=== PATIENT | male | born 1935 | race Caucasian/White ===

== ENCOUNTER 2016-12-14 18:43 | Inpatient (IN) | payer MEDICARE ==
[~2016-12-14] VITALS: Ht 190.5 cm; Wt 70.9 kg
[~2016-12-14 18:43] MED LIST: ACCUPRIL10 MG PO; ANTIVERT25 MG PO; ASPIRIN CHILDRE81 MG PO; ASPIRIN81 M1 PO; BACTROBAN OINT22 GM T; CEFTIN250 MG PO; CIPRO500 MG PO; DOK COLACE100 MG PO; HYDROCODONE BIT1 T11 PO; K-DUR20 MEQ PO; K-TAB20 MEQ PO; LAC-HYDRIN12% T; LASIX40 MG PO; Lac-Hydrin 12%340 GM T; MIRALAX POWDER17 G1 PO; NKHM; NORVASC10 MG PO; NORVASC5 MG PO; PLETAL100 MG PO; REGRANEX 0.01% TP; VICODIN1 TAB PO; VITAMIN D50000 I3 PO
[2016-12-14 18:49] VITALS: BP 125/77
[2016-12-14 19:25] LABS: BASO # 0.1 10*3/uL (0.0-0.1); BASO % 1.3 % (0.0-1.0); EOS # 0.3 10*3/uL (0.0-0.4); EOS % 4.9 % (1.0-4.0); HEMATOCRIT 34.7 % (42.0-52.0); HEMOGLOBIN 11.4 g/dl (14.0-18.0); LYMPH # 1.5 10*3/uL (1.3-4.4); LYMPH % 23.4 % (27.0-41.0); MEAN CELL VOLUME 95.3 fl (80.0-94.0); MEAN CORPUSCULAR HGB 31.3 pg (27.0-31.0); MEAN CORPUSCULAR HGB CONC 32.9 g/dl (33.0-37.0); MEAN PLATELET VOLUME 10.6 fl (9.6-12.3); MONO # 0.6 10*3/uL (0.1-1.0); MONO % 9.6 % (3.0-9.0); NEUT # 3.9 10*3/uL (2.3-7.9); NEUT % 60.3 % (47.0-73.0); PLATELET COUNT AUTOMATED 155 10*3/uL (130-400); RED BLOOD COUNT 3.64 10*6/uL (4.50-5.90); RED CELL DISTRI WIDTH 13.4 % (0-14.5); WHITE BLOOD COUNT 6.4 10*3/uL (4.8-10.8)
[2016-12-14 19:37] LABS: BILIRUBIN NEGATIVE (NEGATIVE); BLOOD NEGATIVE (NEGATIVE); CLARITY CLEAR (CLEAR); COLOR YELLOW (YELLOW); GLUCOSE NEGATIVE (NEGATIVE); KETONE NEGATIVE (NEGATIVE); LEUKO ESTERASE 1+ (NEGATIVE); NITRITE NEGATIVE (NEGATIVE); PROTEIN NEGATIVE (NEGATIVE); UROBILINOGEN 0.2 E.U./dl (0.2-1.0)
[2016-12-14 19:41] LABS: ALBUMIN 3.5 gm/dl (3.1-4.5); BILIRUBIN, TOTAL 0.4 mg/dl (0.2-1.0); POTASSIUM 3.9 mmol/L (3.5-5.1); TOTAL PROTEIN 7.5 gm/dL (6.4-8.2)
[2016-12-14 19:44] LABS: BACTERIA TRACE; EPITHELIAL CELLS 0-2; URINE REFLEX COMMENT YES (NO)
[2016-12-14 20:30] VITALS: BP 127/70
[2016-12-14 21:27] VITALS: BP 115/64
[2016-12-15 00:30] VITALS: BP 122/72
[2016-12-15 08:00] VITALS: BP 140/70
== END 2016-12-15 09:26 | disposition short-term general hospital (02) | DRG 390 ==
LOC: ED 18:43 → 5E 23:07 → EDHOLD 23:07 → 5E 23:55
PROVIDERS: Physician Assistant
DX: K56.69 Other intestinal obstruction (principal); Z98.890 Other specified postprocedural states